=== PATIENT | male | born 1955 | race Two or more races ===

== ENCOUNTER → 2022-08-05 06:00 | Outpatient (CLI) | payer OTHER ==
[~2022-08-05] VITALS: Ht 182.9 cm; Wt 117.0 kg
[~2022-08-05 06:00] MED LIST: CALPHRON667 MG PO; CARVEDILOL ER20 MG PO; CARVEDILOL25 M1; COZAAR100 MG PO; FOLIC ACID1 MG; HUMULIN 70100 UNIT/2; LOSARTAN-HCTZ1 EAC1; METFORMIN HCL1000 M2 PO; SYMBICORT 80/10.2 GM; TAMSULOSIN HCL0.4 MG; VASOFLEX FORTE1 EACH; VENTOLIN HFA18 GM; VITAMIN B-121000 MC4; VITAMIN D21250 MCG; ZOCOR20 MG PO
== END | disposition home or self-care (01) ==
LOC: LAB 06:00 → EDSTATUS 08-07 10:30 → SURH 08-07 10:30
PROVIDERS: ATTEND Surgery
DX: Z03.818 Encounter for observation for suspected exposure to other biological agents ruled out (principal); Z20.822 Contact with and (suspected) exposure to COVID-19; C18.6 Malignant neoplasm of descending colon; R19.4 Change in bowel habit; D50.9 Iron deficiency anemia, unspecified; R59.0 Localized enlarged lymph nodes

== ENCOUNTER 2022-08-08 06:54 | Inpatient (IN) | payer OTHER ==
[~2022-08-08] VITALS: Ht 208.3 cm; Wt 117.0 kg
[~2022-08-08 06:54] MED LIST changes: -CARVEDILOL25 M1; -FOLIC ACID1 MG; -LOSARTAN-HCTZ1 EAC1; -SYMBICORT 80/10.2 GM; -TAMSULOSIN HCL0.4 MG; -VASOFLEX FORTE1 EACH; -VENTOLIN HFA18 GM; -VITAMIN B-121000 MC4; -VITAMIN D21250 MCG
[2022-08-15] MEDS ORDERED: FOLIC ACID1 MG (13:24)
[2022-08-15] MEDS ORDERED: VITAMIN B-121000 MC4 (13:24)
[2022-08-15] MEDS ORDERED: LOSARTAN-HCTZ1 EAC1 (13:24)
[2022-08-15] MEDS ORDERED: CARVEDILOL25 M1 (13:24)
[2022-08-15] MEDS ORDERED: SYMBICORT 80/10.2 GM (13:24)
[2022-08-15] MEDS ORDERED: TAMSULOSIN HCL0.4 MG (13:24)
[2022-08-15] MEDS ORDERED: VASOFLEX FORTE1 EACH (13:24)
[2022-08-15] MEDS ORDERED: VENTOLIN HFA18 GM (13:25)
[2022-08-15] MEDS ORDERED: VITAMIN D21250 MCG (13:25)
== END 2022-08-25 15:02 | disposition home or self-care (01) | DRG 329 ==
LOC: ER 06:54 → SURG 11:59 → SEC-K 11:59 → SURG 21:02 → ICU 08-15 18:21 → SURG 08-20 20:57
PROVIDERS: Surgery; ADMIT Internal Medicine Geriatric Medicine; ATTEND Internal Medicine Geriatric Medicine
PROC: 4A12X4Z Monitoring of Cardiac Electrical Activity, External Approach (ICD-10-PCS; 2022-08-08)
PROC: B24BYZZ Ultrasonography of Heart with Aorta using Other Contrast (ICD-10-PCS; 2022-08-08)
PROC: 30233N1 Transfusion of Nonautologous Red Blood Cells into Peripheral Vein, Percutaneous Approach (ICD-10-PCS; 2022-08-09)
PROC: 0FB24ZX Excision of Left Lobe Liver, Percutaneous Endoscopic Approach, Diagnostic (ICD-10-PCS; 2022-08-12)
PROC: 0DTG4ZZ Resection of Left Large Intestine, Percutaneous Endoscopic Approach (ICD-10-PCS; principal; 2022-08-12 15:45)
PROC: 5A09457 Assistance with Respiratory Ventilation, 24-96 Consecutive Hours, Continuous Positive Airway Pressure (ICD-10-PCS; 2022-08-13)
PROC: 05HY33Z Insertion of Infusion Device into Upper Vein, Percutaneous Approach (ICD-10-PCS; 2022-08-15)
PROC: BW24ZZZ Computerized Tomography (CT Scan) of Chest and Abdomen (ICD-10-PCS; 2022-08-16)
DX: C18.6 Malignant neoplasm of descending colon (principal); I50.33 Acute on chronic diastolic (congestive) heart failure; J95.822 Acute and chronic postprocedural respiratory failure; C78.7 Secondary malignant neoplasm of liver and intrahepatic bile duct; I48.21 Permanent atrial fibrillation; K92.2 Gastrointestinal hemorrhage, unspecified; N17.9 Acute kidney failure, unspecified; J44.1 Chronic obstructive pulmonary disease with (acute) exacerbation; E87.29 Other acidosis; D63.0 Anemia in neoplastic disease; D50.0 Iron deficiency anemia secondary to blood loss (chronic); I11.0 Hypertensive heart disease with heart failure; E11.65 Type 2 diabetes mellitus with hyperglycemia; R53.81 Other malaise; F43.20 Adjustment disorder, unspecified; E66.09 Other obesity due to excess calories; G47.33 Obstructive sleep apnea (adult) (pediatric); Z79.4 Long term (current) use of insulin; Z79.84 Long term (current) use of oral hypoglycemic drugs